=== PATIENT | female | born 2000 | race Two or more races ===

== ENCOUNTER 2023-11-24 21:49 | Inpatient (IN) | payer OTHER ==
[~2023-11-24] VITALS: Ht 149.9 cm; Wt 76.2 kg
[2023-11-24] MEDS ORDERED: PHEN15CA61 PO (22:20)
[2023-11-24 22:41] LABS: BASOPHILS % (AUTO) 0.5 % (0.0-2.0); EOSINOPHILS % (AUTO) 1.1 % (1.0-6.0); HEMATOCRIT 38.4 % (36-46); HEMOGLOBIN 12.4 g/dL (12.0-16.0); LYMPHOCYTES # (AUTO) 2.3 K/uL (1.0-4.8); LYMPHOCYTES % (AUTO) 31.2 % (22.0-44.0); MEAN CORPUSCULAR HGB CONC 32.4 G/dL (31.0-37.0); MEAN CORPUSCULAR VOLUME 87 fL (80-100); MONOCYTES # (AUTO) 0.5 K/uL (0.1-1.0); MONOCYTES % (AUTO) 7.4 % (2.0-9.0); NEUTROPHILS # (AUTO) 4.3 K/uL (1.8-7.7); NEUTROPHILS % (AUTO) 59.8 % (40.0-70.0); PLATELET COUNT (AUTO) 354 K/uL (150-450); RED BLOOD CELL COUNT(AUTO) 4.43 MIL/uL (4.00-5.20); RED CELL DISTRIBUTION WIDTH 12.7 % (11.5-14.5); WHITE BLOOD COUNT (AUTO) 7.3 K/uL (4.5-11.0)
[2023-11-24] MEDS: BACITRACIN 0.9 GM PACKET OINTMENT TP ONE (22:50)
[2023-11-24] MEDS: PERTUSS(ACELL),DIPH,TET/PF 0.5 ML SYRINGE [ADULT] IM. ONE (22:50)
[2023-11-24 22:52] LABS: ANION GAP 12 mmol/L (8-16); CALCIUM, TOTAL 9.5 mg/dL (8.8-10.5); CARBON DIOXIDE 26 mmol/L (22-29); CHLORIDE 100 mmol/L (98-107); CREATININE 0.82 mg/dL (0.60-1.30); GLOMERULAR FILTR. RATE CALC > 60 mL/min (>60); GLUCOSE,RANDOM 114 mg/dL (70-110); POTASSIUM 3.6 mmol/L (3.5-5.1); SODIUM SERUM 138 mmol/L (136-145); UREA NITROGEN, BLOOD 14 mg/dL (7-18)
[2023-11-24 22:54] LABS: ALCOHOL, URINE DRUG SCREEN NEGATIVE (NEGATIVE); AMPHET/METH SCREEN,URINE NEGATIVE (NEGATIVE); BARBITURATE SCREEN, URINE NEGATIVE (NEGATIVE); BENZODIAZEPINES SCREEN,URINE NEGATIVE (NEGATIVE); CANNABINOID SCREEN,URINE NEGATIVE (NEGATIVE); COCAINE SCREEN,URINE NEGATIVE (NEGATIVE); METHADONE SCREEN, URINE NEGATIVE (NEGATIVE); OPIATE SCREEN,URINE NEGATIVE (NEGATIVE); PHENCYCLIDINE SCREEN,URINE NEGATIVE (NEGATIVE)
[2023-11-24 22:56] LABS: ALANINE AMINOTRANSFERASE 19 U/L (12-78); ALBUMIN 3.9 g/dL (3.4-5.0); ALKALINE PHOSPHATASE 58 U/L (46-116); ASPARTATE AMINOTRANSFERASE 14 U/L (15-37); BILIRUBIN,TOTAL 0.4 mg/dL (0.1-1.0); TOTAL PROTEIN, SERUM 7.7 g/dL (6.4-8.2)
[2023-11-24 22:58] LABS: ALCOHOL, BLOOD (SERUM) < 3 mg/dL (0-10)
[2023-11-24 23:12] LABS: COVID AG,FIA SOURCE NASAL SWAB
[2023-11-24 23:41] LABS: SARS-COV2 (COVID) ANTIGEN,FIA Negative (Negative)
[2023-11-25] MEDS ORDERED: HALOPERIDOL 5 MG TABLET PO PRN (03:00)
[2023-11-25] MEDS ORDERED: LORazepam 2 MG TABLET PO PRN (03:00)
[2023-11-25] MEDS ORDERED: ZOLPIDEM TARTRATE 10 MG TABLET PO PRN (03:00)
[2023-11-25 03:19] LABS: APPEARANCE,URINE CLEAR (CLEAR); BILIRUBIN,URINE NEGATIVE (NEGATIVE); COLOR,URINE COLORLESS (YELLOW); GLUCOSE, URINE (UA) NEGATIVE (NEGATIVE); KETONES,URINE NEGATIVE (NEGATIVE); LEUKOCYTE ESTERASE ,URINE NEGATIVE (NEGATIVE); NITRATE,URINE NEGATIVE (NEGATIVE); OCCULT BLOOD,URINE SMALL (NEGATIVE); PROTEIN,URINE NEGATIVE (NEGATIVE); SPECIFIC GRAVITIY, URINE 1.012 (1.003-1.030); UROBILINOGEN,URINE <=1.0 mg/dL (<=1.0)
[2023-11-25 03:45] LABS: BACTERIA,URINE None Seen /HPF (None Seen); RBC,URINE 0-2 /HPF (0-2); SQUAMOUS EPITHELIAL CELL,UR None Seen /LPF (None Seen); WBC,URINE None Seen /HPF (0-5)
[2023-11-25 12:57] VITALS: BP 120/56; PULSE 78; RESP 18; TEMP 97.3; O2SAT 100
[2023-11-25] MEDS: INFLUENZA VIRUS VACCINE QVS 2023-24 (6MO+)/PF 60 MCG/0.5 ML SYRINGE IM. ONE (13:30)
[2023-11-25] MEDS: MAG HYDROX/ALUMINUM HYD/SIMETH 30 ML SUSPENSION UDCUP PO PRN (13:32)
[2023-11-25] MEDS: BACITRACIN 28 GM OINTMENT TP SCH (16:36)
[2023-11-25 23:11] VITALS: BP 115/77; PULSE 68; RESP 18; TEMP 97.5; O2SAT 100
[2023-11-26 08:14] VITALS: BP 100/59; PULSE 72; RESP 16; TEMP 98; O2SAT 100
[2023-11-26] MEDS: OMEPRAZOLE 20 MG CAPSULE PO SCH (08:33)
[2023-11-26] MEDS ORDERED: PETROLATUM,WHITE 28 GM JELLY TP PRN (17:45)
[2023-11-26] MEDS ORDERED: MAGNESIUM HYDROXIDE SUSPENSION 30 ML UDCUP PO PRN (17:45)
[2023-11-26] MEDS ORDERED: NICOTINE 14 MG/24 HOUR PATCH TD PRN (17:45)
[2023-11-26] MEDS ORDERED: LOPERAMIDE HCL 2 MG CAPSULE PO PRN (17:45)
[2023-11-26] MEDS ORDERED: DOCUSATE SODIUM 100 MG CAPSULE PO PRN (17:45)
[2023-11-26] MEDS ORDERED: ONDANSETRON HCL 4 MG TABLET PO PRN (17:45)
[2023-11-26] MEDS ORDERED: IBUPROFEN 400 MG TABLET PO PRN (17:45)
[2023-11-26] MEDS ORDERED: CloNIDine HCL 0.1 MG TABLET PO PRN (17:45)
[2023-11-26] MEDS ORDERED: ALBUTEROL SULFATE HFA 90 MCG/PUFF 8 GM INHALER IH PRN (17:45)
[2023-11-26] MEDS ORDERED: ACETAMINOPHEN 325 MG TABLET PO PRN (17:45)
[2023-11-26] MEDS ORDERED: GuaiFENesin/D-METHORPHAN [SUGAR-FREE] 200-20MG/10 ML SYRUP UDCUP PO PRN (17:45)
[2023-11-26] MEDS ORDERED: MAG HYDROX/ALUMINUM HYD/SIMETH ES 30 ML SUSPENSION UDCUP PO PRN (17:45)
[2023-11-26 20:14] VITALS: BP 107/65; PULSE 81; RESP 17; TEMP 97.7; O2SAT 100
[2023-11-27 08:11] VITALS: BP 111/59; PULSE 71; RESP 18; TEMP 97.7; O2SAT 96
[2023-11-27 08:42] LABS: HEMOGLOBIN A1C 5.9 % (3.8-5.6)
[2023-11-27 09:00] LABS: CHOL/HDL RATIO 1.9 (3.9-5.7); THYROID STIMULATING HORMONE 1.08 uIU/mL (0.36-3.74)
[2023-11-27 23:30] VITALS: RESP 18
[2023-11-28 09:11] VITALS: BP 117/60; PULSE 69; RESP 17; TEMP 97.8; O2SAT 100
== END 2023-11-28 16:00 | disposition home or self-care (01) | DRG 885 ==
LOC: EMS 21:49 → B3A 11-25 10:21 → B2S 11-26 09:47
PROVIDERS: ADMIT Psychiatry & Neurology Psychiatry; ATTEND Psychiatry & Neurology Psychiatry
PROC: GZHZZZZ Group Psychotherapy (ICD-10-PCS; principal; 2023-11-28)
DX: F33.2 Major depressive disorder, recurrent severe without psychotic features (principal); S61.519A Laceration without foreign body of unspecified wrist, initial encounter; E66.9 Obesity, unspecified; G47.00 Insomnia, unspecified; Z20.822 Contact with and (suspected) exposure to COVID-19; R73.9 Hyperglycemia, unspecified; X83.8XXA Intentional self-harm by other specified means, initial encounter; Y93.89 Activity, other specified; Y92.89 Other specified places as the place of occurrence of the external cause; Y99.8 Other external cause status; Z79.899 Other long term (current) drug therapy; Z68.33 Body mass index [BMI] 33.0-33.9, adult
CPT/HCPCS: 80053; 80061; 80307; 81001; 83036; 84443; 84703; 85025; 90715; 99285; G0480